=== PATIENT | male | born 1950 | race Asian ===

== ENCOUNTER 2021-12-14 08:20 | Outpatient (CLI) | payer MEDICARE, OTHER | END 2021-12-14 08:21 | disposition home or self-care (01) | LOC: CSHRAD 08:20 | PROVIDERS: ATTEND Chiropractor | DX: M19.90 Unspecified osteoarthritis, unspecified site (principal); M19.011 Primary osteoarthritis, right shoulder; M48.56XA Collapsed vertebra, not elsewhere classified, lumbar region, initial encounter for fracture | CPT/HCPCS: 72100 ==

== ENCOUNTER 2022-11-20 09:52 | Outpatient (CLI) | payer MEDICARE, OTHER | END 2022-11-20 09:53 | disposition home or self-care (01) | LOC: CSHRAD 09:52 | PROVIDERS: ATTEND Family Medicine | DX: R13.10 Dysphagia, unspecified (principal); G20 Parkinson's disease | CPT/HCPCS: 74230 ==

== ENCOUNTER 2023-03-13 09:47 | Outpatient (CLI) | payer MEDICARE, OTHER | END 2023-03-13 09:48 | disposition home or self-care (01) | LOC: CSHRAD 09:47 | PROVIDERS: ATTEND Family Medicine | DX: R13.10 Dysphagia, unspecified (principal); G12.29 Other motor neuron disease; G90.3 Multi-system degeneration of the autonomic nervous system | CPT/HCPCS: 74230 ==

== ENCOUNTER 2023-05-21 10:44 | Emergency (ER) | payer MEDICARE, OTHER | END 2023-05-21 15:26 | disposition home or self-care (01) | LOC: CSHERS 10:44 | DX: S32.10XA Unspecified fracture of sacrum, initial encounter for closed fracture (principal); S32.058A Other fracture of fifth lumbar vertebra, initial encounter for closed fracture; W18.30XA Fall on same level, unspecified, initial encounter | CPT/HCPCS: 70450; 72125; 72128; 72131; 72192 ==

== ENCOUNTER 2023-11-07 14:28 | Emergency (ER) | payer MEDICARE, OTHER ==
[2023-11-07] MEDS ORDERED: Morphine 4 MG/ML VIAL ONE (15:25)
[2023-11-07] MEDS ORDERED: CEFAZOLIN 1 GM VIAL ONE (15:26)
[2023-11-07] MEDS ORDERED: Boostrix 0.5 ML (Tdap) VIAL (>/=7 yrs of age) ONE (15:26)
[2023-11-07] MEDS ORDERED: Ondansetron PF 4 MG/2 ML Vial ONE (15:26)
== END 2023-11-07 17:35 | disposition home or self-care (01) ==
LOC: CSHERS 14:28
DX: S06.0X0A Concussion without loss of consciousness, initial encounter (principal); S01.01XA Laceration without foreign body of scalp, initial encounter; S01.81XA Laceration without foreign body of other part of head, initial encounter; Z23 Encounter for immunization; W19.XXXA Unspecified fall, initial encounter
CPT/HCPCS: 12011; 70450; 70486; 72125; 90715; 96372; J0690; J2270; J2405